=== PATIENT | female | born 1955 ===

== ENCOUNTER 2018-11-02 20:49 | Emergency (ER) | payer BC ==
--- NOTE | 2018-11-02 21:40 | Emergency Department Report ---
Blank Doc - Documentation Documentation: This is a 62-year-old female that presents with lower back pain. Denies any i njuries. This initial assessment/diagnostic orders/clinical plan/treatment(s) is/are subject to change based on patient's health status, clinical progression and re- assessment by fellow clinical providers in the ED. Further treatment and workup at subsequent clinical providers discretion. Patient/guardians urged not to elope from the ED as their condition may be serious if not clinically assessed and managed. Initial orders include: 1- Patient sent to [facility] for further evaluation and treatment. 2- UA
[2018-11-02 21:43] VITALS: BP 118/56
[2018-11-03 00:35] LABS: Bilirubin,Urine NEG (Negative); Blood,Urine SM (Negative); Color,Urine Straw (Yellow); Mucus,Urine FEW /HPF; Protein,Urine <15 mg/dL mg/dL (Negative); Urobilinogen,Urine < 2.0 mg/dL (<2.0)
[2018-11-03] MEDS ORDERED: DECADRON IM ONE (02:03)
[2018-11-03] MEDS ORDERED: ZOFRAN ODT PO ONE (02:03)
[2018-11-03] MEDS ORDERED: TORADOL IM ONE (02:03)
[2018-11-03] MEDS ORDERED: PERCOCET 5/325 PO ONE (02:04)
--- NOTE | 2018-11-03 03:27 | Emergency Department Report ---
ED General Adult HPI - General Chief complaint: Back Pain/Injury Stated complaint: BACK PAIN Time Seen by Provider: 11/02/18 21:39 Source: patient Mode of arrival: Ambulatory Limitations: No Limitations - History of Present Illness Initial comments: Patient is a 62-year-old female with a history of chronic low back pain with sciatica and presents to the ED with acute exacerbation of chronic low back pain that radiates to the right hip and right leg for the last 2 weeks, worse in the last 4 days. Patient states that she's been taking [id number] medication with no relief. Patient denies chest pain, shortness of breath, fall, traumatic injury, abdominal pain, hematuria, dysuria, vaginal bleeding, urinary or bowel incontinence, saddle paresthesia, numbness, tingling or weakness of her lower extremities bilaterally. MD Complaint: low back pain that radiates to the lower extremities -: Gradual, week(s) (2) Location: back Radiation: extremity (right leg), other (right leg) Severity scale (0 -10): 5 Quality: aching, sharp Consistency: constant Improves with: none Worsens with: movement Associated Symptoms: denies other symptoms. denies: confusion, chest pain, cough, diaphoresis, fever/chills, headaches, malaise, nausea/vomiting, shortness of breath, syncope, weakness Treatments Prior to Arrival: NSAID - Related Data Previous Rx's Medication Instructions Recorded Last Taken Type Gabapentin [Neurontin] 300 mg PO Q8HR #30 capsule 11/03/18 Unknown Rx predniSONE [Deltasone] 60 mg PO QDAY #15 tab 11/03/18 Unknown Rx tiZANidine [Zanaflex 4mg TAB] 4 mg PO Q8H PRN #21 tablet 11/03/18 Unknown Rx traMADol [Ultram] 50 mg PO Q6HR PRN #15 tablet 11/03/18 Unknown Rx Allergies Allergy/AdvReac Type Severity Reaction Status Date / Time No Known Allergies Allergy Verified 11/02/18 20:52 ED Review of Systems ROS: Stated complaint: BACK PAIN Other details as noted in HPI Comment: All other systems reviewed and negative Constitutional: no symptoms reported. denies: chills, fever Eyes: denies: eye pain, eye discharge, vision change ENT: denies: ear pain, throat pain Respiratory: denies: cough, shortness of breath, wheezing Cardiovascular: denies: chest pain, palpitations Endocrine: no symptoms reported Gastrointestinal: denies: abdominal pain, nausea, diarrhea Genitourinary: denies: urgency, dysuria, discharge Musculoskeletal: back pain, arthralgia. denies: joint swelling Skin: denies: rash, lesions Neurological: denies: headache, weakness, paresthesias Psychiatric: denies: anxiety, depression Hematological/Lymphatic: denies: easy bleeding, easy bruising ED Past Medical Hx - Past Medical History Previous Medical History?: Yes - Surgical History Past Surgical History?: Yes Additional Surgical History: Gastric Bypass - Social History Smoking Status: Never Smoker Substance Use Type: None - Medications Home Medications: Home Medications Medication Instructions Recorded Confirmed Last Taken Type Gabapentin [Neurontin] 300 mg PO Q8HR #30 capsule 11/03/18 Unknown Rx predniSONE [Deltasone] 60 mg PO QDAY #15 tab 11/03/18 Unknown Rx tiZANidine [Zanaflex 4mg TAB] 4 mg PO Q8H PRN #21 tablet 11/03/18 Unknown Rx traMADol [Ultram] 50 mg PO Q6HR PRN #15 tablet 11/03/18 Unknown Rx ED Physical Exam - General Limitations: No Limitations General appearance: alert, in no apparent distress - Head Head exam: Present: atraumatic, normocephalic, normal inspection - Eye Eye exam: Present: normal appearance, PERRL, EOMI. Absent: scleral icterus, conjunctival injection Pupils: Present: normal accommodation - ENT ENT exam: Present: normal exam, normal orophraynx, mucous membranes moist, TM's normal bilaterally, normal external ear exam - Neck Neck exam: Present: normal inspection, full ROM. Absent: tenderness, lymphadenopathy - Respiratory Respiratory exam: Present: normal lung sounds bilaterally. Absent: respiratory distress, wheezes, rales, rhonchi, chest wall tenderness, accessory muscle use, decreased breath sounds - Cardiovascular Cardiovascular Exam: Present: regular rate, normal rhythm, normal heart sounds. Absent: systolic murmur, diastolic murmur, rubs, gallop - GI/Abdominal GI/Abdominal exam: Present: soft, normal bowel sounds. Absent: distended, tenderness, guarding - Rectal Rectal exam: Present: deferred - Extremities Exam Extremities exam: Present: normal inspection, full ROM, normal capillary refill - Back Exam Back exam: Present: normal inspection, tenderness (palpable lumbosacral paraspinal musculoskeletal tenderness), muscle spasm, paraspinal tenderness - Neurological Exam Neurological exam: Present: alert, oriented X3, CN II-XII intact, normal gait, reflexes normal - Psychiatric Psychiatric exam: Present: normal affect, normal mood - Skin Skin exam: Present: warm, dry, intact, normal color. Absent: rash ED Course Vital Signs 11/02/18 20:57 Temperature 97.5 F L Pulse Rate 74 Respiratory 18 Rate Blood Pressure 118/56 O2 Sat by Pulse 97 Oximetry - Reevaluation(s) Reevaluation #1: 11/03/18 03:28 Patient is alert and oriented 3 and is not in distress but pain. Urinalysis is unremarkable. Patient was treated for pain in the ED and on reevaluation, patient's pain was moderately controlled. Patient is discharged home on pain medications and muscle relaxants and advised to follow up with her primary care physician in 2 days for reevaluation. ED Medical Decision Making - Medical Decision Making Patient is alert and oriented 3 and is not in distress but pain. Urinalysis is unremarkable. Patient was treated for pain in the ED and on reevaluation, patient's pain was moderately controlled. Patient is discharged home on pain medications and muscle relaxants and advised to follow up with her primary care physician in 2 days for reevaluation. - Differential Diagnosis chronic sciatica; chronic low back pain; muscle spasm of back Critical care attestation.: If time is entered above; I have spent that time in minutes in the direct care of this critically ill patient, excluding procedure time. ED Disposition Clinical Impression: Acute exacerbation of chronic low back pain, Spasm of muscle of lower back, Chronic sciatica of right side Disposition: DC-01 TO HOME OR SELFCARE Is pt being admited?: No Does the pt Need Aspirin: No Condition: Stable Instructions: Lumbar Radiculopathy (ED), Arthralgia (ED), Muscle Spasm (ED) Additional Instructions: Take medications with food, drink plenty of fluids and follow-up with your primary care physician in 3-5 days for reevaluation. Return to the ED immediately if symptoms get worse. Prescriptions: predniSONE [Deltasone] 60 mg PO QDAY #15 tab Gabapentin [Neurontin] 300 mg PO Q8HR #30 capsule traMADol [Ultram] 50 mg PO Q6HR PRN #15 tablet PRN Reason: Pain tiZANidine [Zanaflex 4mg TAB] 4 mg PO Q8H PRN #21 tablet PRN Reason: Spasms Referrals: EUN SANTOS MD [Primary Care Provider] - 3-5 Days Time of Disposition: 03:35 Print Language: DUTCH
== END 2018-11-03 03:44 | disposition home or self-care (01) ==
LOC: ED 20:49
DX: M54.41 Lumbago with sciatica, right side (principal); G89.29 Other chronic pain; M62.830 Muscle spasm of back; Z79.899 Other long term (current) drug therapy
CPT/HCPCS: 81001; 96372; 99283; J1100; J1885; Q0162